=== PATIENT | female | born 1985 | race Caucasian/White ===

== ENCOUNTER → 2021-06-06 11:20 | Outpatient (CLI) | payer OTHER, MEDICAID, SELFPAY ==
[2021-06-06 12:37] LABS: COVID19 -Nasal RAPID Negative (Negative)
== END ==
PROVIDERS: Referring Provider Obstetrics & Gynecology; Visit Provider Obstetrics & Gynecology
DX: Z01.812 Encounter for preprocedural laboratory examination (principal); Z20.822 Contact with and (suspected) exposure to COVID-19
CPT/HCPCS: 87635; C9803

== ENCOUNTER 2021-06-07 08:06 | Day surgery (SDC) | payer OTHER, MEDICAID, SELFPAY ==
[2021-05-29 15:09] VITALS: BMI 23.9
--- NOTE | 2021-06-07 | PATH_ITS ---
[facility] Accession Number: [id number] . 01 Material submitted: . PART A: endocervix - ENDOCERVICAL CURETTINGS PART B: endometrium - ENDOMETRIAL CURETTINGS . 02 Diagnosis: A. Endocervix, Curettage: Predominantly blood with fragments of benign breakdown (shedding) endometrium. A few strips of benign endocervical epithelium. . B. Endometrium, Curettage: A few minute strips of squamous epithelium with mild atypia; see comment. Negative for high-grade squamous intraepithelial lesion. Background consisting of fragments of mid to late secretory phase endometrium with focal features suggestive of polyp and extensive breakdown (shedding). No evidence of endometrioid intraepithelial neoplasia or malignancy. Few strips of benign endocervical epithelium with squamous metaplasia. . Comment: In part B, a few minute strips of squamous epithelium demonstrate mild atypia. The differential diagnosis includes HPV cytopathic changes, reactive changes and/or poor preservation artifact; there is no evidence of moderate dysplasia; Correlation with clinical, pap history, and molecular HPV studies is necessary. [facility] 06/11/2021 1739 Local . 02 Electronically signed: . Ophelia Jarvis MD, Pathologist NPI- [id number] . 01 Gross description: . Part A: ENDOCERVICAL CURETTINGS: Received in formalin are minute fragments of mucoid and hemorrhagic material measuring 2.0 x 0.7 x 0.2 cm in aggregate. Submitted in toto in 1 cassette. Part B: ENDOMETRIAL CURETTINGS: Received in formalin are minute fragments of mucoid and hemorrhagic material measuring 3.0 x 2.5 x 1.0 cm in aggregate. Submitted in toto in 3 cassettes. /[facility] 06/08/2021 1253 Local . 02 Pathologist provided ICD-10: N94.89 . 02 CPT . 312509, [id number] Performed at: 01 [facility] [address] [id number] MD Gerry Mendoza MD Phone: [phone] Performed at: 02 [facility] [address] [place], [place] [id number] MD Ashlie Christianson MD Phone: [phone]
[2021-06-07 08:23] VITALS: BMI 23.9
[2021-06-07] MEDS: LACTATED RINGERS 1,000 ML 42 ML IV (08:36)
[2021-06-07 08:38] VITALS: BP 122/80; PULSE 93; RESP 16; TEMP 36.3; O2SAT 100
[2021-06-07 08:42] VITALS: BMI 23.9
--- NOTE | 2021-06-07 09:03 | PM.PREOP ---
Pre-operative Note COVID-19 COVID-19 status: Negative Result date/Date tested (Pos, Neg/Pending): 06/06/21 Interval Note History & Physical reviewed/Exam performed by Physician: Yes Changes to H&P: No
--- NOTE | 2021-06-07 09:23 | SUR.OPER ---
Lithotomy on padded OR bed, head on pillow, arms secured on padded arm boards at <90 degrees abduction. Legs secured in padded yellow fins stirrups. patient voided in bathroom/pre-op area prior to entering OR.
[2021-06-07] MEDS: SILVER NITRATE STICK 1 EACH TOP (09:29)
[2021-06-07 09:37] VITALS: BP 119/80; PULSE 81; RESP 18; TEMP 36.3; O2SAT 96
[2021-06-07 09:42] VITALS: BP 119/76; PULSE 83; RESP 16; O2SAT 100
[2021-06-07 09:47] VITALS: BP 116/77; PULSE 77; RESP 16; O2SAT 100
--- NOTE | 2021-06-07 09:47 | PM.GYNOP.1 ---
Operative Date/Time/Diagnoses Date of procedure: 06/07/21 Time of procedure: 09:00 Pre-op diagnosis: Menorrhagia Thickened endometrial stripe on ultrasound Post-op diagnosis: same Procedure & Clinicians Procedure: Procedures Operation Date: 06/07/21 09:00 Actual Procedure Side Surgeon p Hysteroscopy with Biopsies, D&C Idris Thompson MD Surgeon: Idris Thompson Anesthesia Type: General Operative Notes Findings: The endometrial cavity is normal in all respects. The endometrium is somewhat hyperemic but otherwise unremarkable. Both tubal ostia were visualized and found to be normal. The endocervical canal was also normal. Examination under anesthesia shows the uterus to be upper limits of normal size and 1st-2nd degree uterovaginal prolapse is noted. Closure Type: not applicable Specimen(s): endometrial curettings and other (Endocervical curettings) Estimated blood loss (mL): 10 Blood products transfused: none Procedure in detail: With the patient under satisfactory general anesthesia in the modified dorsal lithotomy position, the perineum, vagina, and lower abdomen were prepped and draped in the usual fashion for hysteroscopy. A pre-surgical safety time-out was then taken in accordance with [facility] Main OR protocols. A speculum was placed in the vagina and cervix visualized. A single-tooth tenaculum was applied to the anterior lip of the cervix. The endocervical canal was easily dilated to 7 mm diameter. Hysteroscope was placed within the endometrial cavity and using sterile saline as a distention medium the endometrial cavity was fully visualized as was the endocervical canal. Absent any localized abnormalities, no biopsies were taken. Fractional dilation curettage was then performed in the usual manner with separate ECC and EMC specimens obtained. The tenaculum was then removed from the anterior lip of the cervix and silver nitrate used to render hemostatic the tenaculum puncture sites. Once complete hemostasis was assured the speculum was removed and the operation terminated with transfer the patient to the PACU after being awakened from anesthesia. Complications experience none. Complications: none Post-operative Condition: stable Disposition: PACU Plan for aftercare: Routine postoperative care. Follow-up will be in 2 weeks.
[2021-06-07 09:52] VITALS: BP 114/77; PULSE 88; RESP 15; TEMP 36.2; O2SAT 100
[2021-06-07 10:00] VITALS: BP 115/78; PULSE 76; RESP 15; TEMP 36.4; O2SAT 100
--- NOTE | 2021-06-07 10:02 | SUR.PHASEII ---
surgeon to bedside to speak with patient. questions regarding procedure invited and answered. states understanding.
--- NOTE | 2021-06-07 10:20 | SUR.PHASEII ---
IV removed, pt dressing independently, escorted by wc to ED entrance.
== END 2021-06-07 10:21 | disposition home or self-care (01) ==
PROVIDERS: PCP Family Medicine; Referring Provider Obstetrics & Gynecology; Visit Provider Obstetrics & Gynecology
PROC: 0UDB8ZZ Extraction of Endometrium, Via Natural or Artificial Opening Endoscopic (ICD-10-PCS; CPT 58558; principal; 2021-06-07 09:00)
DX: N92.1 Excessive and frequent menstruation with irregular cycle (principal); N81.2 Incomplete uterovaginal prolapse; N94.89 Other specified conditions associated with female genital organs and menstrual cycle
CPT/HCPCS: 58558; J1100; J2405; J2704; J3010